=== PATIENT | female | born 1975 | race Native Hawaiian/Other Pacific Islander ===

== ENCOUNTER 2017-03-28 11:21 | Emergency (ER) | payer OTHER ==
[2017-03-28 11:35] VITALS: BP 121/86; PULSE 99; RESP 18; TEMP 98.4; O2SAT 98
[2017-03-28] MEDS ORDERED: Sodium Chloride 0.9% 1,000 ML IV ONE (12:04)
[2017-03-28] MEDS ORDERED: Sodium Chloride 0.9% 1,000 ML ONE (12:26)
[2017-03-28 12:36] LABS: BASO # 0.1 K/uL (0.0-0.2); BASO % 0.7 % (0.0-2.0); EOS # 0.3 K/uL (0.0-0.7); EOS % 2.9 % (0.0-4.0); HEMATOCRIT 35.6 % (34.0-47.0); LYMPH # 2.3 K/uL (1.0-4.3); LYMPH % 21.2 % (20.0-40.0); MEAN CELL VOLUME 88.9 fL (81.0-99.0); MEAN CORPUSCULAR HEMOGLOBIN 28.8 pg (27.0-31.0); MEAN CORPUSCULAR HGB CONC 32.4 g/dL (33.0-37.0); MEAN PLATELET VOLUME 8.7 fL (7.2-11.7); MONO # 0.8 K/uL (0.0-0.8); MONO % 7.7 % (0.0-10.0)
[2017-03-28 12:43] LABS: CHLORIDE 106 mmol/L (98-107); SODIUM 141 mmol/L (132-148)
[2017-03-28 12:44] LABS: POTASSIUM 3.8 mmol/L (3.6-5.2)
[2017-03-28 12:45] LABS: RBC URINE 1 /hpf (0-3); URINE BACTERIA RARE (<OCC); URINE BILIRUBIN NEGATIVE (NEGATIVE); URINE BLOOD 1+ (NEGATIVE); URINE COLOR Yellow (YELLOW); URINE GLUCOSE (UA) NORMAL (Normal); URINE KETONE NEGATIVE (NEGATIVE); URINE LEUKOCYTE ESTERASE 3+ Leu/uL (Negative); URINE PROTEIN NEGATIVE (NEGATIVE); URINE UROBILINOGEN NORMAL mg/dL (0.2-1.0); WBC URINE 29 /hpf (0-5)
[2017-03-28 12:46] LABS: ALKALINE PHOSPHATASE 58 U/L (38-126); ALT/SGPT 13 U/L (9-52); AST/SGOT 18 U/L (14-36); BILIRUBIN,TOTAL 0.4 mg/dL (0.2-1.3); BLOOD UREA NITROGEN 9 mg/dL (7-17); CARBON DIOXIDE 21 mmol/L (22-30); GFR AFRICAN-AMERICAN > 60; TOTAL PROTEIN 7.2 g/dL (6.3-8.3)
[2017-03-28 12:47] LABS: CALCIUM 8.9 mg/dl (8.6-10.4); GLUCOSE,RANDOM 89 mg/dL (65-105)
--- NOTE | 2017-03-28 12:57 | C.PDOC ---
History Of Present Illness Patient is a 41 y/o female, with PMHx of kidney stone, presents to the ED for evaluation of left flank pain associated with vomiting for the last 2 days. States that her symptoms feel similar to when she has kidney stone. Patient reports having lithotripsy done in the past. Also complains of itchy rash to neck and extremities. Otherwise, denies any shortness of breath, abdominal pain , dysuria, hematuria, or fever. LMP: 03/14/17. Time Seen by Provider: 03/28/17 11:44 Chief Complaint (Nursing): Back Pain History Per: Patient History/Exam Limitations: no limitations Onset/Duration Of Symptoms: Days (2) Current Symptoms Are (Timing): Still Present Quality Of Discomfort: "Pain" Previous Symptoms: Back Pain. denies: Prior Injury Associated Symptoms: None. denies: Incontinence, New Weakness, New Numbness Exacerbating Factor(s): Nothing Recent travel outside of the [place]: No Additional History Per: Patient Past Medical History Reviewed: Historical Data, Nursing Documentation, Vital Signs Vital Signs: Last Vital Signs Temp 98.4 F 03/28/17 11:32 Pulse 99 H 03/28/17 11:32 Resp 18 03/28/17 11:32 BP 121/86 03/28/17 11:32 Pulse Ox 98 03/28/17 14:30 - Medical History PMH: HTN, Kidney Stones Family History: States: Unknown Family Hx - Social History Hx Alcohol Use: No Hx Substance Use: No - Immunization History Hx Tetanus Toxoid Vaccination: No Hx Influenza Vaccination: No Hx Pneumococcal Vaccination: No Review Of Systems Except As Marked, All Systems Reviewed And Found Negative. Constitutional: Negative for: Fever, Chills Gastrointestinal: Positive for: Vomiting. Negative for: Abdominal Pain, Diarrhea Genitourinary: Negative for: Dysuria, Frequency, Incontinence, Hematuria, Vaginal Discharge Musculoskeletal: Positive for: Back Pain (left flank pain) Skin: Positive for: Rash Neurological: Negative for: Weakness, Numbness Physical Exam - Physical Exam Appears: Non-toxic, Other (In painful distress) Skin: Warm, Dry, Rash (maculopapular rash to neck and arms) Head: Atraumatic, Normacephalic Eye(s): bilateral: Normal Inspection, EOMI Nose: Normal Oral Mucosa: Moist Tongue: Normal Appearing Lips: Normal Appearing, No Swelling Throat: Normal, No Exudate Neck: Normal ROM, Supple Cardiovascular: Rhythm Regular, No Murmur Respiratory: Normal Breath Sounds, No Rales, No Rhonchi, No Wheezing Gastrointestinal/Abdominal: Soft, No Tenderness Back: CVA Tenderness (left), No Vertebral Tenderness Extremity: Bilateral: Atraumatic, Normal Color And Temperature, Normal ROM Neurological/Psych: Oriented x3, Normal Speech Gait: Steady ED Course And Treatment - Laboratory Results Result Diagrams: 03/28/17 12:25 03/28/17 12:25 Lab Interpretation: No Acute Changes O2 Sat by Pulse Oximetry: 98 (RA) Pulse Ox Interpretation: Normal - CT Scan/US Abd & pelvis CT Other Rad Studies (CT/US): Read By Radiologist, Radiology Report Reviewed CT/US Interpretation: FINDINGS: There is limited evaluation of the solid organs without the administration of IV contrast. LOWER THORAX: No focal consolidation. No pleural effusion. No pneumothorax. LIVER: Unremarkable unenhanced appearance. GALLBLADDER AND BILE DUCTS: Unremarkable unenhanced appearance. PANCREAS: Unremarkable unenhanced appearance. SPLEEN: Unremarkable unenhanced appearance. ADRENALS: Unremarkable unenhanced appearance. KIDNEYS AND URETERS: 0.6 x 1.2 cm calculus just distal to the left UVJ. Moderate left-sided hydroureteronephrosis. 3 mm nonobstructing left renal calculus. No right-sided obstructing calculus or hydronephrosis. Urinary bladder wall appears mildly thickened, possibly exaggerated by under distension. BLADDER: See above. REPRODUCTIVE: Uterus is present. APPENDIX: The appendix is not identified. No secondary signs of acute appendicitis. BOWEL: The stomach is nondistended. Lack of oral contrast limits evaluation for bowel pathology. The bowel loops appear within normal limits of caliber without evidence of intestinal obstruction. Mild constipation. PERITONEUM: No significant free fluid. No definite free air. LYMPH NODES: Scattered sub cm mesenteric and retroperitoneal lymph nodes, nonspecific. VASCULATURE: No aortic aneurysm. BONES: No acute osseous abnormality is detected. OTHER FINDINGS: None. IMPRESSION: 0.6 x 1.2 cm calculus just distal to the left UVJ. Moderate left-sided hydroureteronephrosis. 3 mm nonobstructing left renal calculus. Urinary bladder wall appears mildly thickened, possibly exaggerated by under distension. Mild constipation. Medical Decision Making Medical Decision Making: Impression: 41 y/o female, with history of kidney stones, presents with left flank pain, and vomiting for the last 2 days. Plan: * Abd & pelvis CT * Blood work * UA * Toradol, Zofran, IV fluids * Reassess and disposition Progress note: Labs reviewed, WNL. UA shows blood, LE and WBCs CT shows 0.6 x 1.2 cm calculus just distal to the left UVJ. Moderate left-sided hydroureteronephrosis. 3 mm nonobstructing left renal calculus. On re-evaluation, patient reports improvement of pain. She has no fever and stable vital signs. Discuss results with patient and spouse. Plan is to discharge home with Rx and to follow up with urologist. recommend benadryl for any itching or rash can also buy OTC cortisone. Disposition Counseled Patient/Family Regarding: Diagnosis, Need For Followup, Rx Given - Disposition Referrals: Karen Graff MD [Staff Provider] - Disposition: HOME/ ROUTINE Disposition Time: 14:26 Condition: STABLE Additional Instructions: Your CT scan shows left sided kidney stone Drink lots of fluids and follow up with urologist. Take the following medications: Cipro twice daily for urine infection Flomax daily to help excrete stone Ibuprofen every 8 hours for mild pain Tylenol with codeine as needed for severe pain. Prescriptions: Acetaminophen with Codeine [Tylenol with Codeine No. 3 300 mg-30 mg] 1 tab PO Q8 PRN #20 tab PRN Reason: Pain, Moderate (4-7) Ciprofloxacin [Cipro] 1 tab PO BID #10 tab Ibuprofen [Motrin] 600 mg PO Q8 #30 tab Tamsulosin [Flomax] 0.4 mg PO DAILY #10 cap Instructions: Kidney Stones (GEN) Forms: [employer] (Lithuanian) - POA Present On Arrival: None - Clinical Impression Clinical Impression: Kidney stone on left side, Allergic dermatitis - PA / FIELD ARTILLERY OFFICER / Resident Statement MD/DO has reviewed & agrees with the documentation as recorded. - Scribe Statement The provider has reviewed the documentation as recorded by the Chandanaibmarianna Liang All medical record entries made by the Chandanaibmarianna were at my direction and personally dictated by me. I have reviewed the chart and agree that the record accurately reflects my personal performance of the history, physical exam, medical decision making, and the department course for this patient. I have also personally directed, reviewed, and agree with the discharge instructions and disposition.
--- NOTE | 2017-03-28 13:43 | CT ---
PROCEDURE: CT Abdomen and Pelvis without Oral or IV contrast. HISTORY: left flank pain, h.o stone COMPARISON: None available. TECHNIQUE: Contiguous axial images of the abdomen and pelvis. No oral or IV contrast administered. Coronal and Sagittal reformats generated and reviewed. Radiation dose: Total exam DLP = 585.97 mGy-cm. This CT exam was performed using one or more of the following dose reduction techniques: Automated exposure control, adjustment of the mA and/or kV according to patient size, and/or use of iterative reconstruction technique. FINDINGS: There is limited evaluation of the solid organs without the administration of IV contrast. LOWER THORAX: No focal consolidation. No pleural effusion. No pneumothorax. LIVER: Unremarkable unenhanced appearance. GALLBLADDER AND BILE DUCTS: Unremarkable unenhanced appearance. PANCREAS: Unremarkable unenhanced appearance. SPLEEN: Unremarkable unenhanced appearance. ADRENALS: Unremarkable unenhanced appearance. KIDNEYS AND URETERS: 0.6 x 1.2 cm calculus just distal to the left UVJ. Moderate left-sided hydroureteronephrosis. 3 mm nonobstructing left renal calculus. No right-sided obstructing calculus or hydronephrosis. Urinary bladder wall appears mildly thickened, possibly exaggerated by under distension. BLADDER: See above. REPRODUCTIVE: Uterus is present. APPENDIX: The appendix is not identified. No secondary signs of acute appendicitis. BOWEL: The stomach is nondistended. Lack of oral contrast limits evaluation for bowel pathology. The bowel loops appear within normal limits of caliber without evidence of intestinal obstruction. Mild constipation. PERITONEUM: No significant free fluid. No definite free air. LYMPH NODES: Scattered sub cm mesenteric and retroperitoneal lymph nodes, nonspecific. VASCULATURE: No aortic aneurysm. BONES: No acute osseous abnormality is detected. OTHER FINDINGS: None. IMPRESSION: 0.6 x 1.2 cm calculus just distal to the left UVJ. Moderate left-sided hydroureteronephrosis. 3 mm nonobstructing left renal calculus. Urinary bladder wall appears mildly thickened, possibly exaggerated by under distension. Mild constipation.
== END 2017-03-28 14:50 | disposition home or self-care (01) ==
LOC: C.ER 11:21
DX: N13.2 Hydronephrosis with renal and ureteral calculous obstruction (principal); Z87.442 Personal history of urinary calculi; L23.9 Allergic contact dermatitis, unspecified cause
CPT/HCPCS: 74176; 80053; 81001; 84703; 85025; 96361; 96374; 96375; 99283; J1885; J2405; J7040

== ENCOUNTER 2017-12-01 10:05 | Emergency (ER) | payer OTHER ==
[2017-12-01 10:10] VITALS: O2SAT 100
[2017-12-01 11:05] LABS: HCG,QUALITATIVE URINE NEGATIVE (NEGATIVE)
--- NOTE | 2017-12-01 11:07 | C.PDOC ---
History Of Present Illness 41 y/o female with history of HTN and Depression presents to ED with c/o left shoulder pain that started yesterday. Pt notes that it has been intermittent painful for the last week while she was doing house work but worsened last night. Pain is sharp, radiates down the arm and to the chest. Patient states pain is worse with movement of left arm. Also notes its worse with she is feeling nervous or anxious. States over the last week she has been feeling increasingly depressed. Does not take any medication for it. No SI/HI. Patient denies fever, headache, abdominal pain, sob, back pain, nausea, vomiting or any other complaints at this time. Time Seen by Provider: 12/01/17 10:44 Chief Complaint (Nursing): GI Problem History Per: Patient, Managed Services Consultant (Kalpana) History/Exam Limitations: language barrier Onset/Duration Of Symptoms: Days Current Symptoms Are (Timing): Still Present Past Medical History Reviewed: Historical Data, Nursing Documentation, Vital Signs Vital Signs: Last Vital Signs Temp 98.0 F 12/01/17 13:00 Pulse 80 12/01/17 13:00 Resp 18 12/01/17 13:00 BP 130/82 12/01/17 13:00 Pulse Ox 100 12/01/17 14:48 - Medical History PMH: HTN, Kidney Stones Surgical History: No Surg Hx Family History: States: No Known Family Hx - Social History Hx Alcohol Use: No Hx Substance Use: No - Immunization History Hx Tetanus Toxoid Vaccination: No Hx Influenza Vaccination: No Hx Pneumococcal Vaccination: No Review Of Systems Except As Marked, All Systems Reviewed And Found Negative. Constitutional: Negative for: Fever, Chills Cardiovascular: Positive for: Chest Pain Respiratory: Negative for: Cough, Shortness of Breath Gastrointestinal: Negative for: Nausea, Vomiting Musculoskeletal: Positive for: Arm Pain Skin: Negative for: Rash Physical Exam - Physical Exam Appears: Non-toxic, No Acute Distress Skin: Normal Color, Warm, Dry, No Rash Head: Atraumatic, Normacephalic Eye(s): bilateral: Normal Inspection, PERRL, EOMI Nose: Normal Oral Mucosa: Moist Throat: Normal, Erythema, Exudate Neck: Normal ROM, No Paracervical Tenderness, No Step Off Deformity, Supple Lymphatic: Normal Exam Chest: Symmetrical, Tenderness (Reproducible Left upper anterior chest wall) Cardiovascular: Rhythm Regular Respiratory: Normal Breath Sounds, No Accessory Muscle Use, No Rales, No Rhonchi , No Wheezing Gastrointestinal/Abdominal: Soft, No Tenderness, No Guarding, No Rebound Extremity: Normal ROM (FROM , pain ellicited with ROM), Tenderness (anterior shoulder tendenress), Capillary Refill (<2 seconds), No Swelling Pulses: Left Radial: Normal, Right Radial: Normal Neurological/Psych: Oriented x3, Normal Speech, Normal Cognition, Normal Motor, Normal Sensation ED Course And Treatment - Laboratory Results Result Diagrams: 12/01/17 11:17 12/01/17 11:17 ECG: Interpreted By Me, Viewed By Me ECG Rhythm: Sinus Rhythm Rate From EC (BPM ) O2 Sat by Pulse Oximetry: 100 (RA) Pulse Ox Interpretation: Normal Progress Note: EKG, Blood work, Left shoulder xray ordered. Toradol administered. On re-evaluation, pt notes she feels better. Lungs CTA. Afebrile. Cardiac enzymes negative, pain going on over 8hrs. Pain is reproducible. Offered social work evaluation for depression, pt requests out pt referral. Denies SI/HI. Instructed to return to ER if symtpoms persist or worsen. Tanslator used to ensure understanding. Case discussed with Dr Novak, agreed upon plan and discharge. Disposition - Disposition Referrals: [facility] [Outside] [facility] [Outside] Disposition: HOME/ ROUTINE Disposition Time: 12:13 Condition: STABLE Additional Instructions: Follow up with PMD in 1-2 days. Return to ER if symptoms persist or worsen. Prescriptions: Ibuprofen [Motrin] 600 mg PO Q6 PRN #20 tab PRN Reason: Pain, Mild (1-3) Instructions: Shoulder Sprain Forms: [employer] (Serbian) - Clinical Impression Clinical Impression: Shoulder strain, Depression, Chest pain - PA / CONTROL CHEMIST / Resident Statement MD/DO has reviewed & agrees with the documentation as recorded. - Scribe Statement The provider has reviewed the documentation as recorded by the Miles Urban All medical record entries made by the Scribe were at my direction and personally dictated by me. I have reviewed the chart and agree that the record accurately reflects my personal performance of the history, physical exam, medical decision making, and the department course for this patient. I have also personally directed, reviewed, and agree with the discharge instructions and disposition.
[2017-12-01 11:09] LABS: SQUAMOUS EPITHIAL 2 /hpf (0-5); URINE BACTERIA RARE (<OCC); URINE BILIRUBIN NEGATIVE (NEGATIVE); URINE BLOOD NEGATIVE (NEGATIVE); URINE CLARITY Clear (Clear); URINE COLOR Yellow (YELLOW); URINE GLUCOSE (UA) NORMAL (Normal); URINE LEUKOCYTE ESTERASE TRACE Leu/uL (Negative); URINE PROTEIN NEGATIVE (NEGATIVE); URINE UROBILINOGEN NORMAL mg/dL (0.2-1.0)
--- NOTE | 2017-12-01 11:12 | RAD ---
PROCEDURE: Radiographs of the Left Shoulder HISTORY: Pain. COMPARISON: No prior. FINDINGS: BONES: Normal. No fracture. JOINTS: Normal. Glenohumeral and acromioclavicular joints preserved. No osteoarthritis. SOFT TISSUES: Normal. OTHER FINDINGS: None. IMPRESSION: Normal radiographs of the left shoulder.
[2017-12-01 11:21] LABS: BASO # 0.1 K/uL (0.0-0.2); BASO % 0.8 % (0.0-2.0); EOS # 0.1 K/uL (0.0-0.7); EOS % 1.2 % (0.0-4.0); HEMOGLOBIN 11.8 g/dL (11.0-16.0); LYMPH # 2.2 K/uL (1.0-4.3); LYMPH % 20.3 % (20.0-40.0); MEAN CELL VOLUME 85.1 fL (81.0-99.0); MEAN CORPUSCULAR HEMOGLOBIN 28.6 pg (27.0-31.0); MEAN CORPUSCULAR HGB CONC 33.5 g/dL (33.0-37.0); MEAN PLATELET VOLUME 8.4 fL (7.2-11.7); MONO # 0.7 K/uL (0.0-0.8); MONO % 6.2 % (0.0-10.0); NEUT # 7.7 K/uL (1.8-7.0); NEUT % 71.5 % (50.0-75.0); RBC 4.12 Mil/uL (3.80-5.20); RED CELL DISTRIBUTION WIDTH 14.4 % (11.5-14.5); WHITE BLOOD COUNT 10.7 K/uL (4.8-10.8)
[2017-12-01 11:45] LABS: ALB/GLOB RATIO 1.1 (1.0-2.1); ALBUMIN 4.3 g/dL (3.5-5.0); AST/SGOT 19 U/L (14-36); BLOOD UREA NITROGEN 8 mg/dL (7-17); CALCIUM 9.4 mg/dl (8.6-10.4); GFR AFRICAN-AMERICAN > 60; GFR NON-AFRICAN AMERICAN > 60; LIPASE 110 U/L (23-300)
[2017-12-01 11:52] LABS: ALT/SGPT < 6 U/L (9-52); CK-MB < 0.22 ng/mL (0.0-3.38)
[2017-12-01 13:04] VITALS: BP 130/82; PULSE 80; RESP 18; TEMP 98
--- NOTE | 2017-12-02 20:30 | CARD ---
APPROVED REPORT EKG Measurement Heart [id number] <Conclusion> Normal sinus rhythm Possible Left atrial enlargement Borderline ECG
== END 2017-12-01 13:10 | disposition home or self-care (01) ==
LOC: C.ER 10:05
DX: S46.912A Strain of unspecified muscle, fascia and tendon at shoulder and upper arm level, left arm, initial encounter (principal); X58.XXXA Exposure to other specified factors, initial encounter; F32.9 Major depressive disorder, single episode, unspecified; R07.9 Chest pain, unspecified
CPT/HCPCS: 73030; 80053; 81001; 82550; 82553; 83690; 84484; 84703; 85025; 85378; 93005; 96374; 99284; J1885

== ENCOUNTER 2018-12-16 09:53 | Emergency (ER) | payer SELFPAY ==
[2018-12-16 10:06] VITALS: BMI 26.8
[2018-12-16 10:09] VITALS: RESP 18; O2SAT 100
[2018-12-16 10:48] LABS: SQUAMOUS EPITHIAL 10 /hpf (0-5); URINE BILIRUBIN NEGATIVE (NEGATIVE); URINE BLOOD NEGATIVE (NEGATIVE); URINE CLARITY Clear (Clear); URINE COLOR Yellow (YELLOW); URINE GLUCOSE (UA) NORMAL (Normal); URINE LEUKOCYTE ESTERASE 1+ Leu/uL (Negative); URINE PROTEIN NEGATIVE (NEGATIVE); URINE UROBILINOGEN NORMAL mg/dL (0.2-1.0)
[2018-12-16] MEDS ORDERED: Naproxen 550 mg Tab PO STA (11:07)
[2018-12-16] MEDS ORDERED: Lidocaine 5% Patch TD STA (11:07)
[2018-12-16] MEDS ORDERED: Naproxen 550 mg Tab PO ONE (11:19)
[2018-12-16] MEDS ORDERED: Lidocaine 5% Patch TD ONE (11:20)
[2018-12-16 11:28] VITALS: BP 125/78; PULSE 74; TEMP 98.2
--- NOTE | 2018-12-16 11:35 | C.PDOC ---
History Of Present Illness 43-year-old female, whose PMHx includes left-sided kidney stone, presents to the ED c/o upper and lower back pain that radiates down to the legs for the past 20 days. Patient reports she occasionally experiences numbness to her bilateral lower extremities but denies any trauma or weakness. Patient has tried Ibuprofen without relief. Patient also reports dysuria, nausea, urinary frequency and subjective fever for 3 days. Patient denies hematuria, vaginal discharge/bleeding, urinary/bowel incontinence and vomiting. <Jeff Garcia - Last Filed: 12/16/18 21:55> History Per: Patient History/Exam Limitations: no limitations Onset/Duration Of Symptoms: Days (20) Current Symptoms Are (Timing): Still Present Additional History Per: Patient <Jeff Garcia - Last Filed: 12/16/18 21:55> <Diamond Solo - Last Filed: 12/18/18 12:42> Time Seen by Provider: 12/16/18 10:11 Chief Complaint (Nursing): Fever Past Medical History Reviewed: Historical Data, Nursing Documentation, Vital Signs Vital Signs: Last Vital Signs Temp 98.2 F 12/16/18 11:27 Pulse 74 12/16/18 11:27 Resp 18 12/16/18 11:27 BP 125/78 12/16/18 11:27 Pulse Ox 100 12/16/18 11:27 Primary Care Provider: FAMILY PROVIDER,NO - Medical History PMH: HTN, Kidney Stones, Chronic Kidney Disease Surgical History: No Surg Hx Family History: States: Unknown Family Hx - Social History Hx Alcohol Use: No Hx Substance Use: No - Immunization History Hx Tetanus Toxoid Vaccination: No Hx Influenza Vaccination: No Hx Pneumococcal Vaccination: No <JoseJeff - Last Filed: 12/16/18 21:55> Vital Signs: Last Vital Signs Temp 98.2 F 12/16/18 11:27 Pulse 74 12/16/18 11:27 Resp 18 12/16/18 11:27 BP 125/78 12/16/18 11:27 Pulse Ox 100 12/16/18 21:59 <Diamond Solo - Last Filed: 12/18/18 12:42> Review Of Systems Constitutional: Positive for: Fever Gastrointestinal: Positive for: Nausea. Negative for: Vomiting Genitourinary: Positive for: Dysuria, Frequency. Negative for: Hematuria, Vaginal Discharge, Vaginal Bleeding Musculoskeletal: Positive for: Back Pain (upper and lower ) Neurological: Positive for: Numbness. Negative for: Weakness <Nery Garciafayenigel - Last Filed: 12/16/18 21:55> Physical Exam - Physical Exam Appears: Non-toxic, No Acute Distress Skin: Normal Color, Warm, Dry Head: Atraumatic, Normacephalic Oral Mucosa: Moist Neck: Supple Chest: Symmetrical, No Deformity, No Tenderness Cardiovascular: Rhythm Regular, No Murmur Respiratory: Normal Breath Sounds, No Rales, No Rhonchi, No Wheezing Back: Paraspinal Tenderness (to thoracic and lumbar spine, on palpation ) Extremity: Normal ROM (bilateral upper and lower extremities ), No Tenderness, Capillary Refill (less than 2 seconds ), No Deformity, No Swelling, No Other (ecchymosis, erythema or edema to extremities ) Neurological/Psych: Oriented x3, Normal Speech, Normal Cognition Gait: Steady <MaxinemickeyAcanita - Last Filed: 12/16/18 21:55> ED Course And Treatment - Laboratory Results Lab Results: Urine Color Yellow (YELLOW) 12/16/18 10:39 Urine Clarity Clear (Clear) 12/16/18 10:39 Urine pH 7.0 (5.0-8.0) 12/16/18 10:39 Ur Specific [place] 1.008 (1.003-1.030) 12/16/18 10:39 Urine Protein Negative mg/dL (NEGATIVE) 12/16/18 10:39 Urine Glucose (UA) Normal mg/dL (Normal) 12/16/18 10:39 Urine Ketones Negative mg/dL (NEGATIVE) 12/16/18 10:39 Urine Blood Negative (NEGATIVE) 12/16/18 10:39 Urine Nitrate Negative (NEGATIVE) 12/16/18 10:39 Urine Bilirubin Negative (NEGATIVE) 12/16/18 10:39 Urine Urobilinogen Normal mg/dL (0.2-1.0) 12/16/18 10:39 Ur Leukocyte Esterase 1+ Joselin/uL (Negative) H 12/16/18 10:39 Urine WBC (Auto) 10 /hpf (0-5) H 12/16/18 10:39 Urine RBC (Auto) 1 /hpf (0-3) 12/16/18 10:39 Ur Squamous Epith Cells 10 /hpf (0-5) H 12/16/18 10:39 O2 Sat by Pulse Oximetry: 100 (on RA) Pulse Ox Interpretation: Normal <JoseJeff - Last Filed: 12/16/18 21:55> - Laboratory Results Lab Results: Urine Color Yellow (YELLOW) 12/16/18 10:39 Urine Clarity Clear (Clear) 12/16/18 10:39 Urine pH 7.0 (5.0-8.0) 12/16/18 10:39 Ur Specific [place] 1.008 (1.003-1.030) 12/16/18 10:39 Urine Protein Negative mg/dL (NEGATIVE) 12/16/18 10:39 Urine Glucose (UA) Normal mg/dL (Normal) 12/16/18 10:39 Urine Ketones Negative mg/dL (NEGATIVE) 12/16/18 10:39 Urine Blood Negative (NEGATIVE) 12/16/18 10:39 Urine Nitrate Negative (NEGATIVE) 12/16/18 10:39 Urine Bilirubin Negative (NEGATIVE) 12/16/18 10:39 Urine Urobilinogen Normal mg/dL (0.2-1.0) 12/16/18 10:39 Ur Leukocyte Esterase 1+ Joeslin/uL (Negative) H 12/16/18 10:39 Urine WBC (Auto) 10 /hpf (0-5) H 12/16/18 10:39 Urine RBC (Auto) 1 /hpf (0-3) 12/16/18 10:39 Ur Squamous Epith Cells 10 /hpf (0-5) H 12/16/18 10:39 <Diamond Solo - Last Filed: 12/18/18 12:42> Medical Decision Making Medical Decision Making: Impression: 43 year old female with upper and lower back pain, dysuria, urinary frequency, nausea, subjective fever Plan: * Bloodwork * urinalysis * Lidoderm TD * reassess and disposition Progress: Bloodwork and urinalysis ordered and reviewed. Lidoderm TD administered. Dr. Solo also assessed patient and believes patient is experiencing muscle spasms Patient is refusing oral medication (such as Naproxen and Flexeril) at this time since she is fasting. Urinalysis results are positive for early urinary tract infection. On reassessment, patient is resting comfortably, showing no signs of distress and reports an improvement in her symptoms. Patient is stable for discharge with Rx and is advised to follow up with her PMD within 1-2 day for further evaluation. <Jeff Garcia - Last Filed: 12/16/18 21:55> Disposition Counseled Patient/Family Regarding: Diagnosis, Need For Followup, Rx Given - Disposition Disposition Time: 11:31 <Jeff Garcia - Last Filed: 12/16/18 21:55> <Diamond Solo - Last Filed: 12/18/18 12:42> - Disposition Referrals: [facility] [Outside] Disposition: HOME/ ROUTINE Condition: IMPROVED Additional Instructions: You are being treated for urinary tract infection and muscle spasm Continue Meds as prescribed Rest and Ice the area Follow up with PMD if symptoms persist Return to the ED if symptoms worsen Prescriptions: Cyclobenzaprine [Flexeril] 5 mg PO TID PRN #15 tab PRN Reason: Muscle Spasm Lidocaine 5% [Lidoderm] 1 ea TD DAILY PRN #30 patch PRN Reason: Pain, Moderate (4-7) Naproxen [Naprosyn] 500 mg PO BID #30 tablet Nitrofurantoin Macrocrystals [Macrobid] 100 mg PO BID #10 cap Phenazopyridine [Pyridium] 200 mg PO TID #6 tab Instructions: Urinary Tract Infections in Adults, Muscle Spasms (DC) Forms: [employer] (Serbian) - Clinical Impression Clinical Impression: Back pain, Leg pain, Dysuria, UTI (urinary tract infection), Muscle spasm - PA / UNDERWRITER MORTGAGE LOAN / Resident Statement MD/DO has examined the patient and agrees with the treatment plan. - Scribe Statement The provider has reviewed the documentation as recorded by the Scribe (Rosalba Liang) All medical record entries made by the Scribe were at my direction and personally dictated by me. I have reviewed the chart and agree that the record accurately reflects my personal performance of the history, physical exam, medical decision making, and the department course for this patient. I have also personally directed, reviewed, and agree with the discharge instructions and disposition. <Jeff Garcia - Last Filed: 12/16/18 21:55> Addendum Addendum: 12/18/18 12:41 Patient evaluated with PA, using voice translation. patient with multiple chronic complaints, but looks well, no distress, no evidence of pain, ambulating well. Will follow up in clinic. <Diamond Solo - Last Filed: 12/18/18 12:42>
== END 2018-12-16 11:40 | disposition home or self-care (01) ==
LOC: C.ER 09:53
DX: N39.0 Urinary tract infection, site not specified (principal); M54.5 Low back pain; R30.0 Dysuria; M62.838 Other muscle spasm; M79.662 Pain in left lower leg; M79.661 Pain in right lower leg